=== PATIENT | female | born 1995 | race Caucasian/White ===

== ENCOUNTER 2018-02-08 08:14 | Emergency (ER) | payer OTHER ==
--- NOTE | 2018-02-08 08:29 | ED Physician Documentation ---
History of Present Illness - Stated complaint Stated Complaint: ELECTRIC SHOCK - History obtained from History obtained from: Patient - History of Present Illness Timing: Today Pain level max: 5 Pain level now: 0 Improved by: nothing Worsened by: nothing - Additonal information Additional information: Patient is a 22-year-old female who was working at the [employer] today when she was shocked by a piece of equipment. No loss of consciousness. No palpitations. No chest pain. No shortness of breath. She grabbed the equipment with her right hand. No electrical smith. She is not . No possibility of . She is not breast-feeding. Review of Systems Ten Systems: 10 systems reviewed and negative Constitutional: denies: Fever, Chills Ears: denies: Ear pain Nose: denies: Rhinorrhea / runny nose, Congestion Throat: denies: Sore throat Cardiac: denies: Chest pain / pressure, Palpitations Respiratory: denies: Dyspnea, Cough, Wheezing GI: denies: Abdominal Pain, Nausea, Vomiting, Diarrhea : denies: Dysuria, Frequency, Hesitancy, Now EGA Skin: denies: Rash Musculoskeletal: denies: Neck pain, Back pain Neurologic: denies: Headache PD PAST MEDICAL HISTORY - Allergies Allergies/Adverse Reactions: Allergies Allergy/AdvReac Type Severity Reaction Status Date / Time codeine AdvReac Hives Verified 02/08/18 08:27 PD ED PE NORMAL - Vitals Vital signs reviewed: Yes - General General: Alert and oriented X 3, No acute distress - HEENT HEENT: Moist mucous membranes - Neck Neck: Supple, no meningeal sign - Cardiac Cardiac: RRR, Strong equal pulses - Respiratory Respiratory: No respiratory distress, Clear bilaterally - Abdomen Abdomen: Soft, Non tender, Non distended - Derm Derm: Warm and dry, Other (no electrical smith) - Extremities Extremities: No calf tenderness / cord - Neuro Neuro: Alert and oriented X 3, 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, No motor deficit, No sensory deficit, Normal speech Eye Opening: Spontaneous Motor: Obeys Commands Verbal: Oriented GCS Score: 15 - Psych Psych: Normal mood, Normal affect Results - Vitals Vitals: Vital Signs - 24 hr 02/08/18 08:28 Temperature 36.7 C Heart Rate 86 Respiratory 14 Rate Blood Pressure 127/90 H O2 Saturation 97 Oxygen O2 Source Room air - EKG (time done) 0824 Rate: Rate (enter#) (82) Rhythm: NSR [place]: Normal Intervals: Normal [place] QRS: Normal Ischemia: Normal ST segments PD MEDICAL DECISION MAKING - ED course Complexity details: reviewed results, considered differential, d/w patient ED course: Patient is a 22-year-old female who suffered an electrical shock today at work. No ongoing symptoms. Normal EKG. No evidence of cardiac arrhythmia. No electrical smith. She feels normal. Will have her follow-up with her doctor for further care. She states no possibility of . She also states that she is not breast-feeding. Patient counseled regarding signs and symptoms for which I believe and urgent re-evaluation would be necessary. Patient with good understanding of and agreement to plan and is comfortable going home at this time This document was made in part using voice recognition software. While efforts are made to proofread this document, sound alike and grammatical errors may occur. Departure - Departure Disposition: 01 Home, Self Care Clinical Impression: Electric shock Qualifiers: Encounter type: initial encounter Qualified Code(s): T75.4XXA - Electrocution, initial encounter Condition: Good Instructions: ED Burn Electrical Follow-Up: David Abdi MD [Primary Care Provider] - As Needed Comments: Your EKG is normal today. Return if you worsen. Discharge Date/Time: 02/08/18 08:40
[2018-02-08 08:33] VITALS: BP 127/90
== END 2018-02-08 08:40 | disposition home or self-care (01) ==
LOC: ED 08:14
DX: T75.4XXA Electrocution, initial encounter (principal); W86.1XXA Exposure to industrial wiring, appliances and electrical machinery, initial encounter; Y92.139 Unspecified place military base as the place of occurrence of the external cause; Y99.0 Civilian activity done for income or pay
CPT/HCPCS: 93005; 99281; 99283

== ENCOUNTER 2019-08-19 13:32 | Emergency (ER) | payer OTHER ==
[2019-08-19 13:40] VITALS: BP 139/95
[2019-08-19 14:06] LABS: BASOPHILS % (AUTO) 0.6 %; EOSINOPHILS # (AUTO) 0.1 10^3/uL (0.0-0.7); EOSINOPHILS % (AUTO) 2.1 %; HGB - HEMOGLOBIN 14.2 g/dL (12.0-16.0); LYMPHOCYTES # (AUTO) 2.2 10^3/uL (1.5-3.5); LYMPHOCYTES % (AUTO) 35.2 %; MEAN CORPUSCULAR HEMOGLOBIN 31.2 pg (27.0-31.0); MEAN CORPUSCULAR HGB CONC 34.5 g/dL (32.0-36.0); MEAN CORPUSCULAR VOLUME 90.3 fL (81.0-99.0); MEAN PLATELET VOLUME 9.7 fL (7.9-10.8); MONOCYTES # (AUTO) 0.6 10^3/uL (0.0-1.0); MONOCYTES % (AUTO) 9.2 %; NEUTROPHILS # (AUTO) 3.3 10^3/uL (1.5-6.6); NEUTROPHILS % (AUTO) 52.7 %; PLT - PLATELET COUNT 217 10^3/uL (130-450); RED BLOOD COUNT 4.55 10^6/uL (4.20-5.40); RED CELL DISTRIBUTION WIDTH 11.9 % (12.0-15.0); WHITE BLOOD COUNT 6.2 x10^3/uL (4.8-10.8)
[2019-08-19 14:14] LABS: BILIRUBIN,URINE NEGATIVE (NEGATIVE); GLUCOSE, URINE (UA) NEGATIVE (NEGATIVE); KETONES,URINE (UA) NEGATIVE (NEGATIVE); LEUKOCYTE ESTERASE, URINE TRACE (NEGATIVE); NITRITE,URINE NEGATIVE (NEGATIVE); OCCULT BLOOD,URINE NEGATIVE (NEGATIVE); PH,URINE 7.5 PH (5.0-7.5); PROTEIN,URINE NEGATIVE (NEGATIVE); UROBILINOGEN,URINE 0.2 (NORMAL) E.U./dL (NORMAL)
[2019-08-19 14:18] LABS: CLARITY,URINE SL. CLOUDY (CLEAR)
[2019-08-19 14:19] LABS: ALBUMIN 4.6 g/dL (3.2-5.5); ALBUMIN/GLOBULIN RATIO 1.5 (1.0-2.2); BILIRUBIN,TOTAL 0.7 mg/dL (0.2-1.0); CALCIUM 9.1 mg/dL (8.5-10.3); CREATININE 0.6 mg/dL (0.4-1.0); TOTAL PROTEIN 7.6 g/dL (6.7-8.2)
[2019-08-19 14:19] LABS: HCG UR QUAL NEGATIVE
[2019-08-19 14:23] LABS: AMORPHOUS SEDIMENT,UR Few /LPF; BACTERIA,URINE Few /HPF (None Seen); RBC,URINE 0-5 /HPF (0-5); SQUAMOUS EPITHELIAL CELL,UR MOD Squamous (<= Few)
--- NOTE | 2019-08-19 14:45 | ED Physician Documentation ---
PD HPI FEMALE - Stated complaint Stated Complaint: FEMALE - Chief complaint Chief Complaint: Abd Pain - History obtained from History obtained from: Patient (24-year-old woman with 2-year-old copper IUD in place. 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 Over the last 3 days has had 2 episodes of sexual activity with her boyfriend. After both episodes she had some spotting, she also has some off white atypical vaginal discharge. No pelvic pain.) Review of Systems Constitutional: denies: Fever, Chills Nose: denies: Rhinorrhea / runny nose, Congestion Cardiac: denies: Chest pain / pressure, Palpitations PD PAST MEDICAL HISTORY - Past Surgical History Past Surgical History: Yes Ortho: Other - Present Medications Home Medications: Ambulatory Orders Medication Instructions Recorded Confirmed Metronidazole [Flagyl] 500 mg PO BID #14 tablet 08/19/19 - Allergies Allergies/Adverse Reactions: Allergies Allergy/AdvReac Type Severity Reaction Status Date / Time codeine AdvReac Hives Verified 08/19/19 13:34 - Social History Does the pt smoke?: No Smoking Status: Never smoker Does the pt drink ETOH?: No Does the pt have substance abuse?: No - Immunizations Immunizations are current?: Yes PD ED PE NORMAL - Vitals Vital signs reviewed: Yes - General General: Alert and oriented X 3, No acute distress - Abdomen Abdomen: Normal bowel sounds, Soft, Non tender - Female Female : [employer] Examiner present (Lisha tech), Other (IUD strings in appropriate position; some off white discharge) - Neuro Neuro: Alert and oriented X 3, Normal speech - Psych Psych: Normal mood, Normal affect Results - Vitals Vitals: Vital Signs - 24 hr 08/19/19 13:34 Temperature 37.0 C Heart Rate 60 Respiratory 16 Rate Blood Pressure 139/95 H O2 Saturation 100 Oxygen O2 Source Room air - Labs Labs: Microbiology 08/19/19 15:04 Wet Prep - Final Vaginal Laboratory Tests 08/19/19 08/19/19 08/19/19 13:40 13:40 14:00 WBC 6.2 RBC 4.55 Hgb 14.2 Hct 41.1 MCV 90.3 MCH 31.2 H MCHC 34.5 RDW 11.9 L Plt Count 217 MPV 9.7 Neut # (Auto) 3.3 Lymph # (Auto) 2.2 [place]osey # (Auto) 0.6 Eos # (Auto) 0.1 Baso # (Auto) 0.0 Absolute Nucleated RBC 0.00 Nucleated RBC % 0.0 Sodium Potassium Chloride Carbon Dioxide Anion Gap BUN Creatinine Estimated GFR (MDRD) Glucose Calcium Total Bilirubin AST ALT Alkaline Phosphatase Total Protein Albumin Globulin Albumin/Globulin Ratio Lipase Urine Color YELLOW Urine Clarity SL. CLOUDY Urine pH 7.5 Ur Specific [place] 1.015 1.015 Urine Protein NEGATIVE Urine Glucose (UA) NEGATIVE Urine Ketones NEGATIVE Urine Occult Blood NEGATIVE Urine Nitrite NEGATIVE Urine Bilirubin NEGATIVE Urine Urobilinogen 0.2 (NORMAL) Ur Leukocyte Esterase TRACE H Urine RBC 0-5 Urine WBC 6-10 H Ur Squamous Epith Cells MOD Squamous H Amorphous Sediment Few Urine Bacteria Few Ur Microscopic Review INDICATED Urine Culture Comments NOT INDICATED Urine HCG, Qual NEGATIVE 08/19/19 14:00 WBC RBC Hgb Hct MCV MCH MCHC RDW Plt Count MPV Neut # (Auto) Lymph # (Auto) Posey # (Auto) Eos # (Auto) Baso # (Auto) Absolute Nucleated RBC Nucleated RBC % Sodium 139 Potassium 3.4 L Chloride 103 Carbon Dioxide 26 Anion Gap 10.0 BUN 16 Creatinine 0.6 Estimated GFR (MDRD) 123 Glucose 87 Calcium 9.1 Total Bilirubin 0.7 AST 23 ALT 19 Alkaline Phosphatase 42 Total Protein 7.6 Albumin 4.6 Globulin 3.0 Albumin/Globulin Ratio 1.5 Lipase 41 Urine Color Urine Clarity Urine pH Ur Specific [place] Urine Protein Urine Glucose (UA) Urine Ketones Urine Occult Blood Urine Nitrite Urine Bilirubin Urine Urobilinogen Ur Leukocyte Esterase Urine RBC Urine WBC Ur Squamous Epith Cells Amorphous Sediment Urine Bacteria Ur Microscopic Review Urine Culture Comments Urine HCG, Qual Departure - Departure Disposition: 01 Home, Self Care Clinical Impression: Bacterial vaginosis Condition: Good Record reviewed to determine appropriate education?: Yes Instructions: ED Vaginosis Bacterial Prescriptions: Metronidazole [Flagyl] 500 mg PO BID #14 tablet Comments: We will call if any of the pending STD tests are positive. Otherwise you do have evidence of bacterial vaginosis which we are treating with the antibiotics. Do not drink alcohol while on these antibiotics, it would make you very sick.
[2019-08-19 19:34] LABS: CANDIDA GROUP DNA NEGATIVE (NEGATIVE); CANDIDA KRUSEI DNA NEGATIVE (NEGATIVE); TRICHOMONAS VAGINALIS DNA NEGATIVE (NEGATIVE)
[2019-08-19 21:42] LABS: TRICHOMONAS VAGINALIS DNA NEGATIVE (NEGATIVE)
== END 2019-08-19 15:36 | disposition home or self-care (01) ==
LOC: ED 13:32
DX: N76.0 Acute vaginitis (principal); B96.89 Other specified bacterial agents as the cause of diseases classified elsewhere; Z97.5 Presence of (intrauterine) contraceptive device
CPT/HCPCS: 36415; 80053; 81001; 81003; 81025; 83690; 85025; 87086; 87210; 87491; 87591; 87661; 87801; 99282; 99283

== ENCOUNTER 2019-11-18 14:49 | Emergency (ER) | payer OTHER ==
--- NOTE | 2019-11-18 16:31 | XRAY Report ---
Reason: cough Procedure Date: 11/18/2019 Accession Number: [id number] / [id number] Procedure: XR - Chest 2 View X-Ray CPT Code: 14754 Final Report FULL RESULT: EXAM: CHEST RADIOGRAPHY EXAM DATE: 11/18/2019 04:11 PM. CLINICAL HISTORY: Cough. COMPARISON: None. TECHNIQUE: 2 views. FINDINGS: Lungs/Pleura: No focal opacities evident. No pleural effusion. No pneumothorax. Normal volumes. Mediastinum: Heart and mediastinal contours are unremarkable. Other: Negative bony structures. IMPRESSION: Normal 2-view chest radiography. RADIA
--- NOTE | 2019-11-18 16:42 | ED Physician Documentation ---
PD HPI URI - Stated complaint Stated Complaint: CP/COUGH - Chief complaint Chief Complaint: Resp - History obtained from History obtained from: Patient - History of Present Illness Timing - onset: Today, Last night Timing details: Abrupt onset, Still present Associated symptoms: Fever, Chills, Dry cough, Chest pain (sore muscles, worse with cough. feeling tight with wheezing.), Dyspnea. No: Hemoptysis, NVD Contributing factors: Sick contact (flu) Similar symptoms before: Has not had sx before Review of Systems Constitutional: reports: Fever, Chills, Myalgias, Fatigue Nose: reports: Congestion. denies: Rhinorrhea / runny nose Throat: denies: Sore throat Cardiac: reports: Chest pain / pressure (front chest, hurts with coughing.). denies: Palpitations, Pedal edema, Calf pain Respiratory: reports: Dyspnea, Cough, Wheezing PD PAST MEDICAL HISTORY - Past Medical History Past Medical History: No Cardiovascular: None Respiratory: None Neuro: None Endocrine/Autoimmune: None - Past Surgical History Past Surgical History: Yes Ortho: Other - Present Medications Home Medications: Ambulatory Orders Medication Instructions Recorded Confirmed Metronidazole [Flagyl] 500 mg PO BID #14 tablet 08/19/19 Albuterol Sulfate [Albuterol 2 puffs IH QID #1 hfa.aer.ad 11/18/19 Sulfate Hfa] Benzonatate [Tessalon Perle] 100 mg PO TID PRN #25 capsule 11/18/19 Ibuprofen [Motrin] 600 mg PO TID PRN #25 tab 11/18/19 Oseltamivir [Tamiflu] 75 mg PO BID #10 capsule 11/18/19 - Allergies Allergies/Adverse Reactions: Allergies Allergy/AdvReac Type Severity Reaction Status Date / Time codeine AdvReac Hives Verified 11/18/19 14:52 - Social History Does the pt smoke?: No Smoking Status: Never smoker Does the pt drink ETOH?: No Does the pt have substance abuse?: No - Immunizations Immunizations are current?: Yes PD ED PE NORMAL - Vitals Vital signs reviewed: Yes - General General: Alert and oriented X 3, No acute distress, Well developed/nourished - HEENT HEENT: Ears normal, Moist mucous membranes, Pharynx benign - Neck Neck: Supple, no meningeal sign, No adenopathy - Cardiac Cardiac: RRR, No murmur - Respiratory Respiratory: No: Clear bilaterally (no coarse sounds. has tightness, with mild wheezing. ) - Abdomen Abdomen: Soft, Non tender - Back Back: No CVA TTP - Derm Derm: Normal color, Warm and dry - Neuro Neuro: Alert and oriented X 3, No motor deficit, Normal speech Results - Vitals Vitals: Oxygen O2 Source Room air - EKG (time done) 14:59 Rate: Rate (enter#) (94) Rhythm: NSR [place]: Normal Intervals: Normal [place] QRS: Normal Ischemia: Normal ST segments. No: ST elevation c/w ischemia, ST depression - Rads (name of study) chest xray Radiology: Prelim report reviewed (no acute process), See rad report PD MEDICAL DECISION MAKING - ED course Complexity details: considered differential (seems very flu like. CXR is clear. The chest pain is with coughing. ), d/w patient Departure - Departure Disposition: 01 Home, Self Care Clinical Impression: Influenza Condition: Stable Record reviewed to determine appropriate education?: Yes Instructions: ED Flu Follow-Up: Jean Marie Perez MD [Primary Care Provider] - Prescriptions: Albuterol Sulfate [Albuterol Sulfate Hfa] 2 puffs IH QID #1 hfa.aer.ad Benzonatate [Tessalon Perle] 100 mg PO TID PRN #25 capsule PRN Reason: Cough Ibuprofen [Motrin] 600 mg PO TID PRN #25 tab PRN Reason: Pain Oseltamivir [Tamiflu] 75 mg PO BID #10 capsule Comments: Stay well-hydrated. You likely be ill about 7 or 8 days with the worst being the first few days. Tamiflu antiviral medicine may help decrease his symptoms some. Use albuterol inhaler 2 puffs 4 times a day if needed for tightness coughing wheezing. Tessalon if needed for cough suppression. Ibuprofen 3 times a day for fevers and pains. Add Tylenol if needed for pains. Recheck if worsening symptoms otherwise expect reasonable illness for several days to week. Forms: Activity restrictions Discharge Date/Time: 11/18/19 17:11
[2019-11-18] MEDS ORDERED: CHERRY SYRUP 10 ML UDC PO ONE (16:59)
[2019-11-18] MEDS ORDERED: OSELTAMIVIR 75 MG CAPSULE PO STA (16:59)
[2019-11-18] MEDS ORDERED: IBUPROFEN 600 MG TABLET PO STA (16:59)
[2019-11-18] MEDS ORDERED: DEXAMETHASONE 10 MG/ML VIAL PO STA (16:59)
[2019-11-18] MEDS ORDERED: BENZONATATE 100 MG CAPSULE PO STA (16:59)
[2019-11-18 17:10] VITALS: BP 126/72
== END 2019-11-18 17:11 | disposition home or self-care (01) ==
LOC: ED 14:49
DX: J11.1 Influenza due to unidentified influenza virus with other respiratory manifestations (principal); R07.89 Other chest pain
CPT/HCPCS: 71046; 93005; 99283; 99284; A9270